=== PATIENT | male | born 1955 | race Caucasian/White ===

== ENCOUNTER 2018-11-21 00:25 | Emergency (ER) | payer MEDICARE, OTHER ==
[2018-11-21] MEDS ORDERED: HYDROMORPHONE HCL INJ/PF 2 MG/ML AMPULE IV ONE (02:06)
[2018-11-21] MEDS ORDERED: ONDANSETRON HCL INJ/PF 4 MG/2 ML SDV IV ONE (02:06)
--- NOTE | 2018-11-21 02:10 | ER Document Report ---
ED Neck/Back Problem - General Chief Complaint: Neck Problem Stated Complaint: NECK PAIN Time Seen by Provider: 11/21/18 01:56 Primary Care Provider: BO ZAIDI MD [Primary Care Provider] - Follow up as needed Notes: Patient is a 62-year-old male that comes emergency department for chief complaint of postop pain to his neck, shoulder, left arm. He had surgery on both Friday () and (19 of November) by Dr. Jake Srerano of [facility]. He states he had repair of cervical 3, 4, 5, and also rods placed in the back. He states that the numbness in the left arm he had before the surgery is improved after the surgery but he has more numbness today, he states he was doing okay with some pain but had increased pain today. He states his pain control with 5 mg of oxycodone every 6 hours is not enough. He has a follow-up with pain control next week. He denies fever or chills, nausea or v omiting, swelling, difficulty swallowing or breathing. Medical history also includes type 2 diabetes. TRAVEL OUTSIDE OF THE [place] IN LAST 30 DAYS: No - Related Data Allergies/Adverse Reactions: No Known Drug Allergies Allergy (Verified 11/21/18 00:34) Past Medical History - General Information source: Patient - Social History Smoking Status: Never Smoker Frequency of alcohol use: None Drug Abuse: None Lives with: Family Family History: None Endocrine Medical History: Reports: Hx Diabetes Mellitus Type 2 GI Medical History: Reports: Hx Gastroesophageal Reflux Disease Past Surgical History: Reports: Hx Orthopedic Surgery - cervical and lumbar - Immunizations Hx Diphtheria, Pertussis, Tetanus Vaccination: Yes Review of Systems - Review of Systems Constitutional: No symptoms reported EENT: No symptoms reported Cardiovascular: No symptoms reported Respiratory: No symptoms reported Gastrointestinal: No symptoms reported Genitourinary: No symptoms reported Male Genitourinary: No symptoms reported Musculoskeletal: See HPI Skin: No symptoms reported Hematologic/Lymphatic: No symptoms reported Neurological/Psychological: See HPI Physical Exam - Vital signs Vitals: Temp Pulse Resp BP Pulse Ox 98.3 F 107 H 24 H 122/89 H 95 11/21/18 00:33 11/21/18 00:33 11/21/18 00:33 11/21/18 00:33 04/13/19 00:33 - Notes Notes: GENERAL: Patient uncomfortable, hunched over towards the left side, moves stiffly HEAD: Normocephalic, atraumatic. EYES: Pupils equal, round, and reactive to light. Extraocular movements intact. ENT: Oral mucosa moist, tongue midline. Oropharynx unremarkable. Airway patent. Nares patent, no nasal septal hematoma, TM's intact. NECK: Surgical dressings in the anterior and posterior neck. These are clean, nonbloody, no swelling, abnormal heat, or drainage from the areas noted. LUNGS: Clear to auscultation bilaterally, no wheezes, rales, or rhonchi. No respiratory distress. HEART: Regular rate and rhythm. No murmur ABDOMEN: Soft, non-tender. Non-distended. Bowel sounds present in all 4 quadrants. GENITOURINARY: Deferred EXTREMITIES: Moves all 4 extremities spontaneously. No edema.. No cyanosis. 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 Sensation is intact. Capillary refill intact. No swelling or tenderness. BACK: no cervical, thoracic, lumbar midline tenderness. No saddle anesthesia, normal distal neurovascular exam. NEUROLOGICAL: Alert and oriented x3. Normal speech. cranial nerves II through XII grossly intact. PSYCH: Normal affect, normal mood. SKIN: Warm, dry, normal turgor. No rashes or lesions noted. Course - Re-evaluation Re-evalutation: Initially patient looks uncomfortable, hunched towards the left side. Dressings are unremarkable. Weakness with the left hand but this is reportedly chronic. Concern because patient states that he had some improvement and now has worse pain and some slight increase in numbness. CBC shows leukocytosis of 15,000, mild anemia. No left shift. Chemistry unremarkable. Because of postop symptoms, leukocytosis, CAT scan performed of the neck with contrast. This does not show abscess, hematoma. CT shows some soft tissue swelling, some fluid and air. Discussed with patient. Discussed with Dr. Toth. Patient was given Dilaudid, afterwards he is sitting upright, symptoms resolved, he states he feels much better. Vital signs normalized. Called and spoke with Mr. Tal BATES, on-call for patient's surgeon at [facility]. I read the details of the CAT scan, reported patient's symptoms and workup, as per recommendations. Recommendation is for increasing patient's pain management, this is to be increased from 5-10 mg oxycodone every 6 hours, patient is to follow-up closely with both surgery and pain management, patient is to return if he worsens in these details were discussed. Patient states satisfaction and agreement with plan. - Vital Signs Vital signs: Temp Pulse Resp BP Pulse Ox 98.4 F 107 H 19 120/83 95 11/21/18 04:19 11/21/18 00:33 11/21/18 04:00 11/21/18 04:00 11/21/18 04:00 - Laboratory Result Diagrams: 11/21/18 02:30 11/21/18 02:50 Laboratory results interpreted by me: 11/21/18 11/21/18 02:30 02:50 WBC 15.3 H RBC 4.08 L Hgb 10.0 L Hct 30.2 L MCV 74 L MCH 24.5 L RDW 15.8 H Absolute Neutrophils 8.7 H Absolute Lymphocytes 5.2 H Sodium 135.4 L Discharge - Discharge Clinical Impression: Post-op pain, Neck pain, Left arm pain Condition: Stable Disposition: HOME, SELF-CARE Additional Instructions: I spoke with Mr. Parada, precipitation equipment tender for Dr. Zach gonzalez. Findings are expected for your postoperative condition. Recommendation is to increase your pain medication from 5 mg to 10 mg of oxycodone every 6 hours. Follow-up closely with both pain management and with your surgeon. Return if you worsen including fever, severe worsening pain, developing numbness, developing swelling, bleeding, or any other concerning symptoms. Referrals: BO ZAIDI MD [Primary Care Provider] - Follow up as needed
[2018-11-21 02:40] LABS: ABSOLUTE EOSINOPHILS # (AUTO) 0.1 10^3/uL (0.0-0.6); ABSOLUTE LYMPHOCYTES (AUTO) 5.2 10^3/uL (0.5-4.7); ABSOLUTE MONOCYTES (AUTO) 1.2 10^3/uL (0.1-1.4); ABSOLUTE NEUT (AUTO) 8.7 10^3/uL (1.7-8.2); BASOPHILS % (AUTO) 0.3 % (0-2); EOSINOPHILS % (AUTO) 0.5 % (0-6); HEMATOCRIT 30.2 % (37.9-51.0); MEAN CORPUSCULAR HEMOGLOBIN 24.5 pg (27.0-33.4); MEAN CORPUSCULAR HGB CONC 33.2 g/dL (32.0-36.0); MEAN CORPUSCULAR VOLUME 74 fl (80-97); MONOCYTES % (AUTO) 8.1 % (3-13); PLATELET COUNT 205 10^3/uL (150-450); RED BLOOD COUNT 4.08 10^6/uL (4.35-5.55); RED CELL DISTRIBUTION WIDTH 15.8 % (11.5-14.0); SEGMENTED NEUTROPHILS % (AUTO) 57.1 % (42-78); TOTAL CELLS COUNTED % (AUTO) 100 %; WHITE BLOOD COUNT 15.3 10^3/uL (4.0-10.5)
[2018-11-21 03:11] LABS: ANION GAP 8 (5-19); BLOOD UREA NITROGEN 17 mg/dL (7-20); CALCIUM 9.2 mg/dL (8.4-10.2); CARBON DIOXIDE 28 mmol/L (22-30); CHLORIDE 99 mmol/L (98-107); GLUCOSE 97 mg/dL (75-110); POTASSIUM 3.7 mmol/L (3.6-5.0); SODIUM 135.4 mmol/L (137-145)
--- NOTE | 2018-11-21 03:52 | RADIOLOGY REPORT (SQ) ---
CLINICAL HISTORY: post op pain, numbness in left arm, leukocytosis COMPARISON: None. TECHNIQUE: CT NECK CHEST WITH IV CONTRAST on 11/21/2018 2:53 AM CDT This exam was performed according to our departmental dose-optimization program, which includes automated exposure control, adjustment of the mA and/or kV according to patient size and/or use of iterative reconstruction technique. FINDINGS: The visualized portions of the brain and orbits are normal. The oral cavity, oropharynx and nasopharynx are normal. The parapharyngeal fat planes are preserved. The hypopharynx is unremarkable. The parotid and submandibular glands are grossly within normal limits. No intrinsic mass lesions are seen. . The paranasal sinuses and mastoid air cells are clear. No definite pathologically enlarged lymph nodes are identified. The thyroid gland is normal in size and configuration. Anterior and posterior lower cervical fusion was performed. There is small amount of subcutaneous air and fluid in the operative site. There is mild prevertebral soft tissue swelling diffusely. The thoracic inlet is normal. The superior mediastinum and lung apices are normal. No acute osseous abnormalities are identified. IMPRESSION: Postoperative changes of extensive spinal fusion with postoperative fluid and air posteriorly. Diffuse prevertebral soft tissue swelling.
[2018-11-21] MEDS ORDERED: HYDROMORPHONE HCL INJ/PF 2 MG/ML AMPULE IM ONE (04:26)
[2018-11-21 04:39] VITALS: BP 120/83
== END 2018-11-21 04:45 | disposition home or self-care (01) ==
LOC: ER 00:25
DX: G89.18 Other acute postprocedural pain (principal); M54.2 Cervicalgia; M79.602 Pain in left arm; M25.519 Pain in unspecified shoulder; R20.0 Anesthesia of skin; R53.1 Weakness; D72.829 Elevated white blood cell count, unspecified; D64.9 Anemia, unspecified; E11.9 Type 2 diabetes mellitus without complications; Z98.1 Arthrodesis status
CPT/HCPCS: 99284; 96372; 96374; 96375; 36415; 85025; 80048; 70491; J1170; J2405

== ENCOUNTER 2019-12-01 06:44 | Emergency (ER) | payer MEDICARE, OTHER ==
[2019-12-01 06:57] VITALS: BP 153/80
[2019-12-01] MEDS ORDERED: NORMAL SALINE 1000 ML 1,000 ML IV ONE (07:36)
[2019-12-01] MEDS ORDERED: MORPHINE SULFATE 10 MG/ML INJ IV ONE (07:36)
[2019-12-01] MEDS ORDERED: ONDANSETRON HCL INJ/PF 4 MG/2 ML SDV IV ONE (07:36)
--- NOTE | 2019-12-01 07:38 | ER Document Report ---
ED Medical Screen (RME) - General Chief Complaint: Possible Kidney Stone Stated Complaint: FLANK PAIN Time Seen by Provider: 12/01/19 06:46 Primary Care Provider: BO ZAIDI MD [Primary Care Provider] - Follow up as needed Notes: Patient is a 63-year-old male that comes emergency department for chief complaint of left sided abdominal pain, he states he has had this for 1 to 2 days but today it became severe, pain radiates into the testicle on the left side. He reports she is very nauseated but denies vomiting. He denies injury. He does have a history of kidney stones. He denies flank pain, fever, dysuria. He has a history of back surgery, denies any abdominal surgeries. Denies any other complaints. TRAVEL OUTSIDE OF THE [place] IN LAST 30 DAYS: No - Related Data Allergies/Adverse Reactions: No Known Drug Allergies Allergy (Verified 12/01/19 06:52) Past Medical History Endocrine Medical History: Reports: Hx Diabetes Mellitus Type 2 Renal/ Medical History: Denies: Hx Peritoneal Dialysis GI Medical History: Reports: Hx Gastroesophageal Reflux Disease Past Surgical History: Reports: Hx Orthopedic Surgery - cervical and lumbar - Immunizations Hx Diphtheria, Pertussis, Tetanus Vaccination: Yes Physical Exam - Vital signs Vitals: Temp Pulse Resp BP Pulse Ox 97.5 F 55 L 16 153/80 H 95 12/01/19 06:50 12/01/19 06:50 12/01/19 06:50 12/01/19 06:50 12/01/19 06:50 - General General appearance: Other - Patient is very uncomfortable, has difficulty holding still, appears to be in pain - Abdominal Tenderness: Tender - Generalized tenderness to the left abdomen in the mid to lower abdomen mainly, nonspecific, no guarding - Genitourinary Inspection: Normal. No: Penile discharge Tenderness: Nontender. No: Testicle tender, Epididymis tender Scrotum: Normal. No: Swelling, Redness, Hot to touch Course - Re-evaluation Re-evalutation: Patient very uncomfortable on evaluation, has generalized left-sided abdominal tenderness, no evidence of torsion on exam. Work-up pending. I have greeted and performed a rapid initial assessment of this patient. A comprehensive ED assessment and evaluation of the patient, analysis of test results and completion of the medical decision making process will be conducted by additional ED providers. - Vital Signs Vital signs: Temp Pulse Resp BP Pulse Ox 97.5 F 55 L 16 153/80 H 95 12/01/19 06:50 12/01/19 06:50 12/01/19 06:50 12/01/19 06:50 12/01/19 06:50 Doctor's Discharge - Discharge Referrals: BO ZAIDI MD [Primary Care Provider] - Follow up as needed
[2019-12-01 08:10] LABS: ABSOLUTE BASOPHILS # (AUTO) 0.1 10^3/uL (0.0-0.2); ABSOLUTE EOSINOPHILS # (AUTO) 0.1 10^3/uL (0.0-0.6); ABSOLUTE LYMPHOCYTES (AUTO) 2.7 10^3/uL (0.5-4.7); ABSOLUTE MONOCYTES (AUTO) 0.6 10^3/uL (0.1-1.4); ABSOLUTE NEUT (AUTO) 5.4 10^3/uL (1.7-8.2); EOSINOPHILS % (AUTO) 1.1 % (0-6); HEMATOCRIT 43.8 % (37.9-51.0); HEMOGLOBIN 14.6 g/dL (13.5-17.0); LYMPHOCYTES % (AUTO) 30.8 % (13-45); MEAN CORPUSCULAR HEMOGLOBIN 25.1 pg (27.0-33.4); MEAN CORPUSCULAR HGB CONC 33.4 g/dL (32.0-36.0); MEAN CORPUSCULAR VOLUME 75 fl (80-97); MONOCYTES % (AUTO) 6.3 % (3-13); PLATELET COUNT 225 10^3/uL (150-450); RED BLOOD COUNT 5.82 10^6/uL (4.35-5.55); RED CELL DISTRIBUTION WIDTH 15.3 % (11.5-14.0); SEGMENTED NEUTROPHILS % (AUTO) 60.8 % (42-78); TOTAL CELLS COUNTED % (AUTO) 100 %; WHITE BLOOD COUNT 8.9 10^3/uL (4.0-10.5)
[2019-12-01 08:13] LABS: APPEARANCE,URINE CLOUDY; BILIRUBIN,URINE NEGATIVE (NEGATIVE); CALCIUM OXALATE CRYSTALS,URINE MANY /HPF; COLOR,URINE AMBER; GLUCOSE, URINE NEGATIVE (NEGATIVE); KETONES,URINE TRACE mg/dL (NEGATIVE); LEUKOCYTE ESTERASE,URINE NEGATIVE (NEGATIVE); NITRITE,URINE NEGATIVE (NEGATIVE); PROTEIN,URINE 100 mg/dL (NEGATIVE); URINE SPECIFIC GRAVITY 1.024; UROBILINOGEN,URINE NEGATIVE mg/dL (<2.0)
[2019-12-01 08:24] LABS: ALBUMIN 4.6 g/dL (3.5-5.0); ALKALINE PHOSPHATASE 86 U/L (38-126); ANION GAP 9 (5-19); ASPARTATE AMINO TRANSFERASE 26 U/L (17-59); BILIRUBIN,TOTAL 0.4 mg/dL (0.2-1.3); BLOOD UREA NITROGEN 21 mg/dL (7-20); CALCIUM 9.6 mg/dL (8.4-10.2); CARBON DIOXIDE 26 mmol/L (22-30); CHLORIDE 104 mmol/L (98-107); GLUCOSE 117 mg/dL (75-110); POTASSIUM 4.6 mmol/L (3.6-5.0); TOTAL PROTEIN 7.5 g/dL (6.3-8.2)
--- NOTE | 2019-12-01 08:42 | ER Document Report ---
ED GI/ - General Chief Complaint: Possible Kidney Stone Stated Complaint: FLANK PAIN Time Seen by Provider: 12/01/19 06:46 Primary Care Provider: EKTA FREEMAN MD [NO LOCAL MD] - 12/01/19 2:30 pm BO ZAIDI MD [Primary Care Provider] - Follow up in 3-5 days Information source: Patient Notes: Patient presents complaining of left lower quadrant abdominal pain for the past 3 days. Patient states that occasionally the pain will radiate into the left testicle. Patient reports nausea without any vomiting. Patient denies any flank pain dysuria or fever. TRAVEL OUTSIDE OF THE [place] IN LAST 30 DAYS: No - HPI Patient complains to provider of: Abdominal pain, Testicular pain. No: Vomiting Onset: Other - 3 days Timing/Duration: Persistent Quality of pain: Achy Pain Level: 1 Location: LLQ, Left testicle Associated symptoms: Nausea. denies: Diarrhea, Dizzy, Dysuria, Fever, Urinary hesitancy, Urinary frequency, Urinary retention, Urinary urgency, Vomiting Exacerbated by: Denies Relieved by: Denies Similar symptoms previously: Yes - With previous kidney stones Recently seen / treated by doctor: No - Related Data Allergies/Adverse Reactions: No Known Drug Allergies Allergy (Verified 12/01/19 08:04) Past Medical History - General Information source: Patient - Social History Smoking Status: Current Every Day Smoker Frequency of alcohol use: None Drug Abuse: None Lives with: Family Family History: None Patient has suicidal ideation: No Patient has homicidal ideation: No - Past Medical History Cardiac Medical History: Reports: Hx Hypercholesterolemia Endocrine Medical History: Reports: Hx Diabetes Mellitus Type 2 Renal/ Medical History: Reports: Hx Kidney Stones. Denies: Hx Peritoneal Dialysis GI Medical History: Reports: Hx Gastroesophageal Reflux Disease Past Surgical History: Reports: Hx Orthopedic Surgery - cervical and lumbar - Immunizations Hx Diphtheria, Pertussis, Tetanus Vaccination: Yes Review of Systems - Review of Systems Constitutional: No symptoms reported. denies: Fever, Recent illness EENT: No symptoms reported Cardiovascular: No symptoms reported. denies: Chest pain Respiratory: No symptoms reported. denies: Cough Gastrointestinal: Abdominal pain, Nausea. denies: Diarrhea, Vomiting Genitourinary: No symptoms reported. denies: Dysuria, Flank pain, Hematuria Male Genitourinary: Testicular pain. denies: Penile discharge Musculoskeletal: No symptoms reported. denies: Back pain Skin: No symptoms reported Hematologic/Lymphatic: No symptoms reported Neurological/Psychological: No symptoms reported Physical Exam - Vital signs Vitals: Temp Pulse Resp BP Pulse Ox 97.5 F 55 L 16 153/80 H 95 12/01/19 06:50 12/01/19 06:50 12/01/19 06:50 12/01/19 06:50 12/01/19 06:50 - General General appearance: Appears well, Alert In distress: None - HEENT Head: Normocephalic, Atraumatic Eyes: Normal Conjunctiva: Normal Nasal: Normal Mouth/Lips: Normal Mucous membranes: Normal Neck: Normal, Supple - Respiratory Respiratory status: No respiratory distress Chest status: Nontender Breath sounds: Normal. No: Rales, Rhonchi, Stridor, Wheezing Chest palpation: Normal - Cardiovascular Rhythm: Regular Heart sounds: S1 appreciated, S2 appreciated - Abdominal Inspection: Normal Distension: No distension Bowel sounds: Normal Tenderness: Tender - Left lower quadrant. No: Guarding Organomegaly: No organomegaly - Genitourinary Notes: See RME exam - Back Back: Normal, Nontender. No: CVA tenderness - Extremities General upper extremity: Normal inspection, Normal strength General lower extremity: Normal inspection, Normal strength - Neurological Neuro grossly intact: Yes Cognition: Normal Joan Coma Scale Eye Opening: Spontaneous Joan Coma Scale Verbal: Oriented Joan Coma Scale Motor: Obeys Commands Joan Coma Scale Total: 15 - Psychological Associated symptoms: Normal affect, Normal mood - Skin Skin Temperature: Warm Skin Moisture: Dry Skin Color: Normal Course - Re-evaluation Re-evalutation: 12/01/19 09:40 Patient states that he has a known calcification in the left lower lobe of the lung and declines having a CT scan performed to further evaluate this today. Patient states that he just will follow-up with his primary doctor regarding this incidental finding is he was familiar with this already. Patient advised of his 6 mm obstructing stone to the distal left ureter. Patient without any fever, leukocytosis, or any findings worrisome for pyelonephritis. Patient's urine will be cultured at this time. Patient with stable vital signs. 12/01/19 09:[address] Freeman who will see patient in the office at 230 today. Recommends obtaining KUB for further evaluation of ureteral stone - Vital Signs Vital signs: Temp Pulse Resp BP Pulse Ox 97.5 F 55 L 16 153/80 H 95 12/01/19 06:50 12/01/19 06:50 12/01/19 06:50 12/01/19 06:50 12/01/19 06:50 - Laboratory Result Diagrams: 12/01/19 07:45 12/01/19 07:45 Laboratory results interpreted by me: 12/01/19 12/01/19 12/01/19 07:45 07:45 07:45 RBC 5.82 H MCV 75 L MCH 25.1 L RDW 15.3 H BUN 21 H Glucose 117 H Urine Protein 100 H Urine Ketones TRACE H Urine Blood LARGE H 12/01/19 14:19 Labs- Entire Visit 12/01/19 12/01/19 12/01/19 07:45 07:45 07:45 WBC 8.9 RBC 5.82 H Hgb 14.6 Hct 43.8 MCV 75 L MCH 25.1 L MCHC 33.4 RDW 15.3 H Plt Count 225 Lymph % (Auto) 30.8 [place] % (Auto) 6.3 Eos % (Auto) 1.1 Baso % (Auto) 1.0 Absolute Neuts (auto) 5.4 Absolute Lymphs (auto) 2.7 Absolute Monos (auto) 0.6 Absolute Eos (auto) 0.1 Absolute Basos (auto) 0.1 Seg Neutrophils % 60.8 Sodium 138.5 Potassium 4.6 Chloride 104 Carbon Dioxide 26 Anion Gap 9 BUN 21 H Creatinine 0.94 Est GFR ( Amer) > 60 Est GFR (MDRD) Non-Af > 60 Glucose 117 H Calcium 9.6 Total Bilirubin 0.4 Direct Bilirubin 0.0 Neonat Total Bilirubin Not Reportable Neonat Direct Bilirubin Not Reportable Neonat Indirect Bili Not Reportable AST 26 ALT 23 Alkaline Phosphatase 86 Total Protein 7.5 Albumin 4.6 Lipase 69.9 Urine Color YESSI Urine Appearance CLOUDY Urine pH 5.0 Ur Specific [place] 1.024 Urine Protein 100 H Urine Glucose (UA) NEGATIVE Urine Ketones TRACE H Urine Blood LARGE H Urine Nitrite NEGATIVE Urine Bilirubin NEGATIVE Urine Urobilinogen NEGATIVE Ur Leukocyte Esterase NEGATIVE Urine WBC (Auto) 14 Urine RBC (Auto) >182 Urine Bacteria (Auto) 2+ Calcium Oxalate Cr Auto MANY Urine Mucus (Auto) MOD Urine Ascorbic Acid NEGATIVE - Diagnostic Test Radiology reviewed: Reports reviewed Discharge - Discharge Clinical Impression: left lung density, Left ureteral stone Condition: Stable Disposition: HOME, SELF-CARE Instructions: Growth or Mass, Pending Workup ([facility]), Kidney Stone ([facility]) Additional Instructions: Return immediately for any new or worsening symptoms Follow-up with Dr. Freeman in his office at 2:30 today. Followup with your primary care provider, call tomorrow to make a followup appointment. Your primary doctor can follow-up with the abnormal lung finding on the CT scan Referrals: BO ZAIDI MD [Primary Care Provider] - Follow up in 3-5 days EKTA FREEMAN MD [NO LOCAL MD] - 12/01/19 2:30 pm
--- NOTE | 2019-12-01 08:48 | RADIOLOGY REPORT (SQ) ---
EXAM DESCRIPTION: CT ABD/PELVIS NO ORAL OR IV IMAGES COMPLETED DATE/TIME: 12/01/2019 8:17 am REASON FOR STUDY: severe left abd pain, vomiting, hx stones COMPARISON: None. TECHNIQUE: CT scan of the abdomen and pelvis performed without intravenous or oral contrast. Images reviewed with lung, soft tissue, and bone windows. Reconstructed coronal and sagittal MPR images revi ewed. All images stored on PACS. All CT scanners at this facility use dose modulation, iterative reconstruction, and/or weight based d osing when appropriate to reduce radiation dose to as low as reasonably achievable (ALARA). [facility]: Dose Right [facility]: CareDose [facility]: Dose Right [facility]: Teradose 4D [facility]: Smart [employer] RADIATION DOSE: CT Rad equipment meets quality standard of care and radiation dose reduction techniq ues were employed. CTDIvol: 9.0 mGy. DLP: 443 mGy-cm.mGy. LIMITATIONS: None. FINDINGS: LOWER CHEST: Partially evaluated 2.1 cm solid and ground-glass density within the left low er lobe on the 1st image. Recommend chest CT for further characterization. NON-CONTRASTED LIVER, SPLEEN, ADRENALS: Evaluation limited by lack of IV contrast. No identified sign ificant masses. PANCREAS: No masses. No peripancreatic inflammatory changes. GALLBLADDER: No identified stones by CT criteria. No inflammatory changes to suggest cholecystitis. RIGHT KIDNEY AND URETER: No suspicious masses. Assessment limited by lack of IV contrast. No signif icant calcifications. No hydronephrosis or hydroureter. LEFT KIDNEY AND URETER: No suspicious masses. Assessment limited by lack of IV contrast. There is a 6 mm obstructing stone at the distal left ureter (series 3, image 64) with associated moderate hydro ureteronephrosis and perinephric stranding. No additional stones. AORTA AND RETROPERITONEUM: Aortoiliac atherosclerosis without aneurysm. No retroperitoneal adenopath y, mass or hemorrhage. BOWEL AND PERITONEAL CAVITY: No evidence of intestinal obstruction. No focal bowel wall thickening. APPENDIX: Not visualized. PELVIS, BLADDER, AND ABDOMINAL WALL:Prostatomegaly extending into the base of the urinary bladder. P rostate measures approximately 5.0 cm transversely with scattered prostate calcifications. Incomplet harper distended urinary bladder. BONES: No acute bony abnormality. No suspicious osseous lesions. Lower lumbar spondylosis and facet arthropathy with left posterior fusion hardware at L3-L5. OTHER: No other significant finding. IMPRESSION: 1. Partially evaluated 2.1 cm solid and ground-glass density within the left lower lobe on the 1st image. Recommend chest CT for further characterization. 2. 6 mm obstructing stone at the distal left ureter with associated moderate hydroureteronephrosis a nd perinephric stranding. No additional stones. 3. Prostatomegaly measuring 5.0 cm and extending to the base of the urinary bladder. COMMENT: Quality ID # [id number]: Final reports with documentation of one or more dose reduction techniques (e.g., Automated exposure control, adjustment of the mA and/or kV according to patient size, use of iterative reconstruction technique) TECHNICAL DOCUMENTATION: JOB ID: [id number] 2010 [employer]- All Rights Reserved Reading location - IP/workstation name: [email or web address]
[2019-12-01] MEDS ORDERED: TAMSULOSIN HCL 0.4 MG CAP.SR.24H PO ONE (09:07)
--- NOTE | 2019-12-01 10:19 | RADIOLOGY REPORT (SQ) ---
EXAM DESCRIPTION: KUB/ABDOMEN (SINGLE VIEW) IMAGES COMPLETED DATE/TIME: 12/01/2019 9:59 am REASON FOR STUDY: eval ureteral stone, ? Radiopaque COMPARISON: Same day CT NUMBER OF VIEWS: One view. TECHNIQUE: Supine radiographic image of the abdomen acquired. LIMITATIONS: None. FINDINGS: BOWEL GAS PATTERN: Normal bowel gas pattern. No dilated loops. Moderate formed stool thro ughout the colon. CALCIFICATIONS: Previously described 6 mm obstructing stone at the distal left ureter is visualized. There are multiple additional calcified pelvic phleboliths. SOFT TISSUES: No gross mass or suggestion of organomegaly. HARDWARE: Left posterior fusion hardware with an interbody spacers at L3-L5. BONES: No acute fracture. No worrisome bone lesions. OTHER: No other significant finding. IMPRESSION: Previous described 6 mm distal left ureteral stone is visible on radiographs. However, there are multiple additional calcified pelvic phleboliths which may limit evaluation on follow-up. TECHNICAL DOCUMENTATION: JOB ID: [id number] 2010 [employer]- All Rights Reserved Reading location - IP/workstation name: [email or web address]
== END 2019-12-01 10:14 | disposition home or self-care (01) ==
LOC: ER 06:44
DX: N20.1 Calculus of ureter (principal); J98.4 Other disorders of lung; R10.84 Generalized abdominal pain; R11.0 Nausea; F17.200 Nicotine dependence, unspecified, uncomplicated; E11.9 Type 2 diabetes mellitus without complications; E78.00 Pure hypercholesterolemia, unspecified; Z87.442 Personal history of urinary calculi
CPT/HCPCS: 99284; 96361; 96374; 96375; 36415; 87086; 83690; 85025; 80053; 81001; 74018; 74176; J2270; A9270; J2405; J7030